=== PATIENT | female | born 1990 | race Two or more races ===

== ENCOUNTER 2016-10-30 04:48 | Emergency (ER) | payer SELFPAY ==
[~2016-10-30] VITALS: Ht 154.9 cm; Wt 61.2 kg
[2016-10-30 05:22] LABS: BASO # 0.1 x10^3/uL (0.0-0.2); BASO % 1 % (0-3); EOS % 2 % (0-3); HEMATOCRIT 38.5 % (36.0-47.0); HEMOGLOBIN 13.2 g/dL (12.0-15.5); LYMPH # 2.8 x10^3/uL (1.0-4.8); LYMPH % 34 % (24-48); MEAN CORPUSCULAR HEMOGLOBIN 30 pg (25-35); MEAN CORPUSCULAR HGB CONC 34 g/dL (31-37); MEAN CORPUSCULAR VOLUME 87 fL (79-100); MONO % 9 % (0-9); NEUT % 54 % (31-73); PLATELET COUNT 226 x10^3/uL (140-400); RED BLOOD COUNT 4.41 x10^6/uL (3.50-5.40); RED CELL DISTRIBUTION WIDTH 13.7 % (11.5-14.5); WHITE BLOOD COUNT 8.4 x10^3/uL (4.0-11.0)
[2016-10-30 05:24] LABS: BILIRUBIN,URINE NEGATIVE (NEG); GLUCOSE,URINE NEGATIVE (NEG); NITRITE,URINE NEGATIVE (NEG); PROTEIN,URINE NEGATIVE (NEG-TRACE); UROBILINOGEN,URINE 0.2 mg/dL (0.2 mg/dL)
[2016-10-30 05:28] LABS: BACTERIA,URINE FEW /HPF (0-FEW); SQUAMOUS EPITHELIAL CELL,UR MOD /LPF; YEAST,URINE PRESENT /HPF
[2016-10-30] MEDS ORDERED: ACETAMINOPHEN 500 MG TABLET PO ONE (05:30)
[2016-10-30 05:42] LABS: CALCIUM 8.8 mg/dL (8.5-10.1); CREATININE 0.7 mg/dL (0.6-1.0); GFR 101.1; POTASSIUM 3.6 mmol/L (3.5-5.1)
[2016-10-30 05:47] LABS: ALBUMIN 3.6 g/dL (3.4-5.0); ALBUMIN/GLOBULIN RATIO 1.1 (1.0-1.7); TOTAL BILIRUBIN 0.6 mg/dL (0.2-1.0); TOTAL PROTEIN 6.9 g/dL (6.4-8.2)
--- NOTE | 2016-10-30 05:55 | PHYS DOC ---
Past Medical History Past Medical History: No Pertinent History Past Surgical History: No Surgical History Alcohol Use: None Drug Use: None Adult General Chief Complaint Chief Complaint: ABDOMINAL PAIN IN HPI HPI Patient is a 26 year old female who presents with lower abdominal cramping and setting of early . Patient reports since yesterday she has had lower abdominal cramping pain. She also had some spotting yesterday, but no today. Patient is now with no complications during prior last menstrual period started 09/11. She has not taken anything for symptoms. No other acute complaints. Review of Systems Review of Systems Constitutional: Denies fever or chills Respiratory: Denies cough or shortness of breath Cardiovascular: Denies chest pain GI: Cramping lower abdominal pain; denies nausea, vomiting, or diarrhea : Vaginal spotting yesterday; denies dysuria or hematuria Musculoskeletal: Denies back pain or joint pain Neurologic: Denies headache, focal weakness or sensory changes Current Medications Current Medications Current Medications Medications (Trade) Dose Ordered Sig/Norma Start Time Stop Time Status Last Admin Dose Admin Acetaminophen (Tylenol) 1,000 mg 1X ONCE 10/30/16 05:30 10/30/16 05:31 DC 10/30/16 05:40 1,000 MG Allergies Allergies Allergies Coded Allergies Type Severity Reaction Last Updated Verified No Known Drug Allergies 10/30/16 No Physical Exam Physical Exam Constitutional: Well developed, well nourished, no acute distress, non-toxic appearance HENT: Normocephalic, atraumatic, bilateral external ears normal Eyes: EOMI, conjunctiva normal, no discharge Neck: Normal range of motion, no stridor Cardiovascular: Heart rate normal, regular rhythm, no murmur Lungs & Thorax: Bilateral breath sounds clear to auscultation Abdomen: Bowel sounds normal, soft, non-distended, lower abdomen mildly TTP without guarding or rebound Pelvic: Scant brown discharge in vault, no blood, no CMT or adnexal tenderness Skin: Warm, dry, no erythema, no rash Extremities: No obvious deformity, no edema Neurologic: Alert and oriented X 3, no gross deficits noted Current Patient Data Vital Signs Vital Signs Date Time Temp Pulse Resp B/P Pulse Ox O2 Delivery O2 Flow Rate FiO2 10/30/16 04:55 97.9 60 16 113/58 100 Room Air 97.9 Lab Values Laboratory Tests Test 10/30/16 04:07 10/30/16 04:51 10/30/16 05:10 POC Urine HCG, Qualitative Hcg positive (Negative) Urine Collection Type Unknown Urine Color Yellow Urine Clarity Clear Urine pH 6.0 Urine Specific [place] 1.025 Urine Protein Negativemg/dL (NEG-TRACE) Urine Glucose (UA) Negativemg/dL (NEG) Urine Ketones (Stick) Tracemg/dL (NEG) Urine Blood Moderate (NEG) Urine Nitrite Negative (NEG) Urine Bilirubin Negative (NEG) Urine Urobilinogen Dipstick 0.2mg/dL (0.2 mg/dL) Urine Leukocyte Esterase Large (NEG) Urine RBC 1-2/HPF (0-2) Urine WBC 5-10/HPF (0-4) Urine Squamous Epithelial Cells Mod/LPF Urine Bacteria Few/HPF (0-FEW) Urine Mucus Marked/LPF Urine Yeast Present/HPF White Blood Count 8.4x10^3/uL (4.0-11.0) Red Blood Count 4.41x10^6/uL (3.50-5.40) Hemoglobin 13.2g/dL (12.0-15.5) Hematocrit 38.5% (36.0-47.0) Mean Corpuscular Volume 87fL (79-100) Mean Corpuscular Hemoglobin 30pg (25-35) Mean Corpuscular Hemoglobin Concent 34g/dL (31-37) Red Cell Distribution Width 13.7% (11.5-14.5) Platelet Count 226x10^3/uL (140-400) Neutrophils (%) (Auto) 54% (31-73) Lymphocytes (%) (Auto) 34% (24-48) Monocytes (%) (Auto) 9% (0-9) Eosinophils (%) (Auto) 2% (0-3) Basophils (%) (Auto) 1% (0-3) Neutrophils # (Auto) 4.6x10^3uL (1.8-7.7) Lymphocytes # (Auto) 2.8x10^3/uL (1.0-4.8) Monocytes # (Auto) 0.8x10^3/uL (0.0-1.1) Eosinophils # (Auto) 0.2x10^3/uL (0.0-0.7) Basophils # (Auto) 0.1x10^3/uL (0.0-0.2) Maternal Serum HCG Beta Subunit 585mIU/mL (0-6) H Sodium Level 142mmol/L (136-145) Potassium Level 3.6mmol/L (3.5-5.1) Chloride Level 107mmol/L (98-107) Carbon Dioxide Level 25mmol/L (21-32) Anion Gap 10 (6-14) Blood Urea Nitrogen 10mg/dL (7-20) Creatinine 0.7mg/dL (0.6-1.0) Estimated GFR (Cockcroft-Gault) 101.1 BUN/Creatinine Ratio 14 (6-20) Glucose Level 94mg/dL (70-99) Calcium Level 8.8mg/dL (8.5-10.1) Total Bilirubin 0.6mg/dL (0.2-1.0) Aspartate Amino Transferase (AST) 20U/L (15-37) Alanine Aminotransferase (ALT) 30U/L (14-59) Alkaline Phosphatase 59U/L (46-116) Total Protein 6.9g/dL (6.4-8.2) Albumin 3.6g/dL (3.4-5.0) Albumin/Globulin Ratio 1.1 (1.0-1.7) Laboratory Tests 10/30/16 05:10 Laboratory Tests 10/30/16 05:10 EKG EKG [] Radiology/Procedures Radiology/Procedures Pelvic US: Impression: No evidence of intrauterine or ectopic . There is a small amount of fluid in the endometrial canal as well as a small amount of free fluid. Course & Med Decision Making Course & Med Decision Making Pertinent Labs and Imaging studies reviewed. (See chart for details) Patient is 26-year-old female who presents with lower abdominal cramping and spotting and setting of early . Pelvic exam performed. Will obtain ultrasound and labs. Dose of acetaminophen ordered for pain control. Blood work unremarkable. Blood type O+. UA with bacteria present, will treat with abx. Imaging results as above. As beta hcg only 585, likely very early . Also possible missed . Still awaiting results of pelvic swabs, will turn patient care over to Dr. Abrams to follow this up. Yoly Disclaimer Yoly Disclaimer This electronic medical record was generated, in whole or in part, using a voice recognition dictation system. Departure Departure Impression: Primary Impression: Abdominal pain affecting Disposition: HOME, SELF-CARE Condition: STABLE Referrals: NO PCP (PCP) VALENTINA TOUSSAINT Jr, MD Patient Instructions: Abdominal Pain During , - First Trimester Additional Instructions: Thank you for allowing us to provide care today in the Emergency Department. Take the provided medication as directed. Schedule a follow up appointment with ObGyn using the provided contact information. Return promptly to the Emergency Department if you develop any new or concerning symptoms. Scripts Pnv Cmb#95/Ferrous Fumarate/Fa ( Tablet)1 Each Tablet1 Tab PO DAILY #30 TAB Ref 0 Prov:MAGUE CLIFFORD MD 10/30/16 Nitrofurantoin Monohyd/M-Cryst (Macrobid 100 Mg Capsule)100 Mg Capsule1 Cap PO BID #10 CAP Prov:MAGUE CLIFFORD MD 10/30/16 MAGUE CLIFFORD MD Oct 30, 2016 05:55
--- NOTE | 2016-10-30 06:03 | RAD ---
Ultrasound Ob less than 14 weeks Indication: Lower abdominal pain. The uterus measures 9.5 x 5.6 x 4.3 centimeters. There is a small amount of fluid in the endometrial canal. No gestational sac is detected. No myometrial mass is seen. The right ovary measures 3.5 x 1.9 x 1.9 centimeters and the left ovary measures 3.3 x 1.9 x 1.9 centimeters. There is blood flow to both ovaries. No adnexal mass is seen. There is a small amount of free fluid detected. Impression: No evidence of intrauterine or ectopic . There is a small amount of fluid in the endometrial canal as well as a small amount of free fluid. Electronically signed by: Raji Barrera MD (Oct 30, 2016 06:01:57)
[2016-10-30] MEDS ORDERED: NITR100C62 PO ×2 (06:13→07:18)
[2016-10-30] MEDS ORDERED: PNV1TABL25 PO ×2 (06:13→07:18)
[2016-10-30] MEDS ORDERED: METR500T PO ×2 (07:16→07:18)
[2016-10-30 08:10] VITALS: BP 107/56
--- NOTE | 2016-11-01 15:27 | VNOTE ---
CALL BACK NOTE CALL BACK Microbiology 10/30/16 Wet Prep - Final, Complete 10/30/16 Urine Culture - Final, Complete 10/30/16 Urine Culture Result 1 (SABRINA) - Final, Complete 10/30/16 Urine Culture Result 2 (SABRINA) - Final, Complete Patient is positive for chlamydia and was not treated, I did call patient, spoke to her, she states she doesn't speak Armenian. I do not have any loss claim clerk to use. We will send a letter in the mail. MEREDITH FISH APRN Nov 01, 2016 15:27
--- NOTE | 2016-11-01 15:55 | VNOTE ---
CALL BACK NOTE CALL BACK Microbiology 10/30/16 Wet Prep - Final, Complete 10/30/16 Urine Culture - Final, Complete 10/30/16 Urine Culture Result 1 (SABRINA) - Final, Complete 10/30/16 Urine Culture Result 2 (SABRINA) - Final, Complete Positive for yeast in urine. . Called earlier, [place]ymraes speaking only. Will send her letter with information. MEREDITH FISH APRN Nov 01, 2016 15:55
== END 2016-10-30 08:14 | disposition home or self-care (01) ==
LOC: ER 04:48
DX: O26.891 Other specified pregnancy related conditions, first trimester (principal); R10.30 Lower abdominal pain, unspecified; N76.0 Acute vaginitis; B96.89 Other specified bacterial agents as the cause of diseases classified elsewhere; Z3A.00 Weeks of gestation of pregnancy not specified
CPT/HCPCS: 36415; 76801; 80053; 81001; 81025; 84702; 85027; 86900; 86901; 87086; 87491; 87591; 99285; Q0111

== ENCOUNTER 2017-05-23 12:26 | Observation (INO) | payer OTHER ==
[~2017-05-23 12:26] MED LIST: METR500T PO; NITR100C62 PO; PNV1TABL25 PO
== END 2017-05-23 14:25 | disposition home or self-care (01) ==
LOC: 3 SO LND 12:26
PROVIDERS: ADMIT Obstetrics & Gynecology; ATTEND Obstetrics & Gynecology
DX: O26.892 Other specified pregnancy related conditions, second trimester (principal); R10.30 Lower abdominal pain, unspecified; Z3A.21 21 weeks gestation of pregnancy
CPT/HCPCS: G0378; G0379

== ENCOUNTER 2017-07-31 15:56 | Observation (INO) | payer SELFPAY ==
[2017-07-31] MEDS ORDERED: IV RINGERS,LACTATED 1000ML 1,000 ML IV PRN (16:45)
[2017-07-31 17:24] LABS: BILIRUBIN,URINE NEGATIVE (NEG); GLUCOSE,URINE NEGATIVE (NEG); NITRITE,URINE NEGATIVE (NEG); PROTEIN,URINE NEGATIVE (NEG-TRACE); UROBILINOGEN,URINE 0.2 mg/dL (0.2 mg/dL)
[2017-07-31 17:34] LABS: BARBITURATES NEG (NEG); BENZODIAZEPINES NEG (NEG); CANNABINOIDS NEG (NEG); COCAINE NEG (NEG); METHADONE NEG (NEG); OPIATES NEG (NEG); PHENCYCLIDINE NEG (NEG)
== END 2017-07-31 18:00 | disposition home or self-care (01) ==
LOC: 3 SO LND 15:56
DX: O26.893 Other specified pregnancy related conditions, third trimester (principal); R10.30 Lower abdominal pain, unspecified; Z3A.33 33 weeks gestation of pregnancy
CPT/HCPCS: 80307; 81003; G0378; G0379; G0479

== ENCOUNTER 2020-07-03 10:43 | Emergency (ER) | payer SELFPAY ==
[~2020-07-03] VITALS: Ht 160 cm; Wt 73.0 kg
[2020-07-03 11:00] VITALS: BP 124/60
--- NOTE | 2020-07-03 11:22 | PHYS DOC ---
Past Medical History Past Medical History: No Pertinent History Past Surgical History: No Surgical History Smoking Status: Never Smoker Alcohol Use: None Drug Use: None General Adult EDM: Chief Complaint: VAGINAL BLEEDING HPI: HPI: Patient is a 29 year old female who presents with 1 day of vaginal spotting. States she was seen at a clinic on the [place] side of which she can not remember the name or the doctor she saw. LMP was May 29, 2020. Patient denies nausea, vomiting, abdominal pain, fever, diarrhea, concerns for sexually transmitted diseases, abnormal vaginal discharge or odor, back pain, chest pain, shortness of air, cough, burning with urination. Denies any pain. Review of Systems: Review of Systems: Constitutional: Denies fever or chills. [] Eyes: Denies change in visual acuity. [] HENT: Denies nasal congestion or sore throat. [] Respiratory: Denies cough or shortness of breath. [] Cardiovascular: Denies chest pain or edema. [] GI: Denies abdominal pain, nausea, vomiting, bloody stools or diarrhea. [] : Denies dysuria. +Vaginal bleeding. [] Musculoskeletal: Denies back pain or joint pain. [] Integument: Denies rash. [] Neurologic: Denies headache, focal weakness or sensory changes. [] Endocrine: Denies polyuria or polydipsia. [] Lymphatic: Denies swollen glands. [] Psychiatric: Denies depression or anxiety. [] Heart Score: Risk Factors: Risk Factors: DM, Current or recent (<one month) smoker, HTN, HLP, family history of CAD, obesity. Risk Scores: Score 0 - 3: 2.5% MACE over next 6 weeks - Discharge Home Score 4 - 6: 20.3% MACE over next 6 weeks - Admit for Clinical Observation Score 7 - 10: 72.7% MACE over next 6 weeks - Early Invasive Strategies Allergies: Allergies: Allergies Coded Allergies Type Severity Reaction Last Updated Verified No Known Drug Allergies 10/30/16 No Physical Exam: PE: Constitutional: Well developed, well nourished, no acute distress, non-toxic appearance. [] HENT: Normocephalic, atraumatic, bilateral external ears normal, oropharynx moist, no oral exudates, nose normal. [] Eyes: PERRLA, EOMI, conjunctiva normal, no discharge. [] Neck: Normal range of motion, no tenderness, supple, no stridor. [] Cardiovascular:Heart rate regular rhythm, no murmur [] Lungs & Thorax: Bilateral breath sounds clear to auscultation [] Abdomen: Bowel sounds normal, soft, no tenderness, no masses, no pulsatile masses. [] Skin: Warm, dry, no erythema, no rash. [] Back: No tenderness, no CVA tenderness. [] Extremities: No tenderness, no cyanosis, no clubbing, ROM intact, no edema. [] Neurologic: Alert and oriented X 3, normal motor function, normal sensory function, no focal deficits noted. [] Psychologic: Affect normal, judgement normal, mood normal. Normal physical exam [] Current Patient Data: Labs: Laboratory Tests Test 07/03/20 10:59 POC Urine HCG, Qualitative Hcg positive (Negative) EKG: EKG: [] Radiology/Procedures: Radiology/Procedures: [] Impression: [facility] [address] [place] [address] IMAGING REPORT Signed PATIENT: SOLO DUPREECOUNT: [id number] : 1990 LOCATION: ER AGE: 29 SEX: F EXAM STATUS: PRE ER ORD. PHYSICIAN: MICHAEL KAYE APRN REASON: vaginal bleeding, approx 5 weeks PROCEDURE: OB <14 WKS W/TV Examination: OB <14 WKS W/TV History: vaginal bleeding, approx 5 weeks / Comparison/Correlation: None Findings: OB ultrasound exam was performed. Transvaginal technique utilized. Uterus measures 9.3 cm x 5.4 cm x 4 cm. Myometrium is normal. Intrauterine gestational sac is present. Yolk sac is seen. The mean gestational sac diameter of 1.07 cm corresponds to 5 weeks 6 days. No pole identified. Hypoechoic region which may represent subchorionic hemorrhage measuring 0.6 cm x 0.7 cm x 0.6 cm present. Pelvic free fluid is present. Right ovary measures 4.1 x 3.6 x 2.1 cm. Left ovary is not visualized. No suspicious pelvic masses. Impression: Small region of subchorionic hemorrhage. Intrauterine gestational sac is present corresponding to 5 weeks 6 days. pole is not identified. This probably represents early stage of gestation. Consider interval follow-up ultrasound exam. Electronically signed by: Manuel Charles MD (07/03/2020 12:03 PM) [id number] DICTATED and SIGNED BY: MANUEL CHARLES MD DATE: 07/03/20 1208 Course & Med Decision Making: Course & Med Decision Making Pertinent Labs and Imaging studies reviewed. (See chart for details) See HPI. Alert oriented x4. Speaks in full complete sentences. Skin pink warm and dry. Ambulatory with a steady gait. Abdomen is soft and nontender. Pelvic Exam: Hospitalist Program Director present Abdomen: Nontender External Genitalia: Normal Skin Speculum: Normal vaginal mucosa, scant bleeding cervical discharge Bimanual: No adnexal masses or tenderness, No CMT [] Dragon Disclaimer: Dragon Disclaimer: This electronic medical record was generated, in whole or in part, using a voice recognition dictation system. Departure Departure Impression: Primary Impression: Vaginal bleeding affecting early Additional Impressions: Trichomoniasis UTI (urinary tract infection) Qualified Codes: N39.0 - Urinary tract infection, site not specified; R31.9 - Hematuria, unspecified Bacterial vaginosis in Disposition: 01 DC HOME SELF CARE/HOMELESS Condition: STABLE Referrals: NO PCP (PCP) VALENTINA TOUSSAINT Jr, MD Patient Instructions: Bacterial Vaginosis, [id number], Subchorionic Hematoma, Trichomoniasis, Vaginal Bleeding During , [id number] Additional Instructions: Follow-up with a PNEUMATIC DEICER INSPECTOR in the next 48 hours for another beta serum blood test. I have referred you to an PNEUMATIC DEICER INSPECTOR. You were treated today for gonorrhea and chlamydia. Your results will come back in 48 hours and they will call you if they are positive. Take your antibiotics as prescribed and with food. Drink plenty of fluids. Scripts Cephalexin (KEFLEX) 500 Mg Capsule 1 CAP PO BID for 7 Days, #14 CAP 0 Refills Prov: MICHAEL KAYE APRN 07/03/20 Metronidazole (METRONIDAZOLE) 500 Mg Tablet 1 TAB PO BID for 7 Days, #14 TAB 0 Refills Prov: MICHAEL KAYE APRN 07/03/20 Ondansetron (ONDANSETRON ODT) 4 Mg Tab.rapdis 1 TAB PO PRN Q6-8HRS, #16 TAB Prov: MICHAEL KAYE UTILITIES MANAGER 07/03/20 MICHAEL KAYE APRN Jul 03, 2020 11:22
[2020-07-03 11:26] LABS: BILIRUBIN,URINE NEGATIVE (NEG); CLARITY,URINE CLOUDY; COLOR,URINE YELLOW; NITRITE,URINE NEGATIVE (NEG); PROTEIN,URINE 30 mg/dL (NEG-TRACE); UROBILINOGEN,URINE 0.2 mg/dL (0.2 mg/dL)
[2020-07-03 11:38] LABS: BACTERIA,URINE MANY /HPF (0-FEW)
[2020-07-03 11:39] LABS: AMORPHOUS SEDIMENT,UR PRESENT /HPF; WBC,URINE 20-40 /HPF (0-4)
[2020-07-03 11:41] LABS: TRICHOMONAS,URINE PRESENT
[2020-07-03 12:05] LABS: BASO # 0.1 x10^3/uL (0.0-0.2); BASO % 1 % (0-3); EOS # 0.2 x10^3/uL (0.0-0.7); EOS % 3 % (0-3); HEMATOCRIT 38.8 % (36.0-47.0); HEMOGLOBIN 13.2 g/dL (12.0-15.5); LYMPH # 2.4 x10^3/uL (1.0-4.8); LYMPH % 27 % (24-48); MEAN CORPUSCULAR HEMOGLOBIN 30 pg (25-35); MEAN CORPUSCULAR HGB CONC 34 g/dL (31-37); MEAN CORPUSCULAR VOLUME 86 fL (79-100); MONO # 0.8 x10^3/uL (0.0-1.1); MONO % 9 % (0-9); NEUT # 5.4 x10^3/uL (1.8-7.7); NEUT % 61 % (31-73); PLATELET COUNT 280 x10^3/uL (140-400); RED CELL DISTRIBUTION WIDTH 13.1 % (11.5-14.5); WHITE BLOOD COUNT 8.8 x10^3/uL (4.0-11.0)
--- NOTE | 2020-07-03 12:06 | RAD ---
Examination: OB <14 WKS W/TV History: vaginal bleeding, approx 5 weeks / Comparison/Correlation: None Findings: OB ultrasound exam was performed. Transvaginal technique utilized. Uterus measures 9.3 cm x 5.4 cm x 4 cm. Myometrium is normal. Intrauterine gestational sac is present. Yolk sac is seen. The mean gestational sac diameter of 1.07 cm corresponds to 5 weeks 6 days. No pole identified. Hypoechoic region which may represent subchorionic hemorrhage measuring 0.6 cm x 0.7 cm x 0.6 cm present. Pelvic free fluid is present. Right ovary measures 4.1 x 3.6 x 2.1 cm. Left ovary is not visualized. No suspicious pelvic masses. Impression: Small region of subchorionic hemorrhage. Intrauterine gestational sac is present corresponding to 5 weeks 6 days. pole is not identified. This probably represents early stage of gestation. Consider interval follow-up ultrasound exam. Electronically signed by: Manuel Sen MD (07/03/2020 12:03 PM) [id number]
[2020-07-03 12:13] LABS: CALCIUM 8.9 mg/dL (8.5-10.1); CREATININE 0.7 mg/dL (0.6-1.0); GFR 98.9; POTASSIUM 3.9 mmol/L (3.5-5.1)
[2020-07-03 12:14] LABS: PROTHROMBIN TIME PATIENT 12.7 SEC (11.7-14.0)
[2020-07-03] MEDS ORDERED: AZITHROMYCIN 250 MG TABLET. PO ONE (12:15)
[2020-07-03] MEDS ORDERED: cefTRIAXone IM 250 MG VIAL IM ONE (12:15)
[2020-07-03] MEDS ORDERED: ONDANSETRON ODT 4 MG TAB.RAPDIS. PO ONE (12:15)
[2020-07-03 12:19] LABS: ALBUMIN 3.3 g/dL (3.4-5.0); TOTAL BILIRUBIN 0.3 mg/dL (0.2-1.0); TOTAL PROTEIN 6.6 g/dL (6.4-8.2)
[2020-07-03] MEDS ORDERED: METR-34 PO (13:24)
[2020-07-03] MEDS ORDERED: ONDA4TAB12 PO (13:24)
[2020-07-03] MEDS ORDERED: CEPH-264 PO (13:24)
[2020-07-04 19:15] LABS: GC PROBE Negative (Negative)
== END 2020-07-03 14:00 | disposition home or self-care (01) ==
LOC: ER 10:43
DX: O23.41 Unspecified infection of urinary tract in pregnancy, first trimester (principal); A59.9 Trichomoniasis, unspecified; N76.0 Acute vaginitis; B96.89 Other specified bacterial agents as the cause of diseases classified elsewhere; Z3A.01 Less than 8 weeks gestation of pregnancy
CPT/HCPCS: 36415; 76801; 76817; 80053; 81001; 81025; 84702; 85025; 85610; 86850; 86900; 86901; 87086; 87491; 87591; 96372; 99284; J0696; Q0111